=== PATIENT | male | born 1960 | race Hispanic/Latino ===

== ENCOUNTER 2018-02-04 06:58 | Day surgery (SDC) | payer BC ==
[~2018-02-04 06:58] MED LIST: LACTATED RINGERS 1,000 ML IV SCH
--- NOTE | 2018-02-04 07:35 | Anesthesia Consultation ---
Anesthesia Consult and Med Hx Date of service: 02/04/18 - Airway Anesthetic Teeth Evaluation: Poor ROM Head & Neck: Adequate Mental/Hyoid Distance: Inadequate Mallampati Class: Class III Intubation Access Assessment: Possibly Difficult - Pulmonary Exam CTA: Yes - Cardiac Exam Cardiac Exam: RRR - Pre-Operative Health Status ASA Pre-Surgery Classification: ASA3 Proposed Anesthetic Plan: General - Pulmonary Hx Smoking: Yes (1 PPD FOR 25 YEARS) Hx Sleep Apnea: Yes - Cardiovascular System Hx Hypertension: Yes (3 YEARS) - Central Nervous System Hx Neuromuscular Disorder: Yes (diabetic neuropathy) Hx Psychiatric Problems: No - Gastrointestinal Hx Gastroesophageal Reflux Disease: Yes - Endocrine Hx Non-Insulin Dependent Diabetes: Yes - Other Systems Hx Alcohol Use: No Hx Substance Use: No Hx Cancer: No Hx Obesity: Yes
--- NOTE | 2018-02-04 07:35 | Anesthesia Day of Surgery ---
Anesthesia Day of Surgery - Day of Surgery Patient Examined: Yes Patient H&P Reviewed: Yes Patient is NPO: Yes
[2018-02-04] MEDS ORDERED: DILAUDID IV PRN (07:36)
[2018-02-04] MEDS ORDERED: PROVENTIL IH NR (07:45)
[2018-02-04] MEDS ORDERED: ANCEF/STERILE WATER 2 GM/20 ML IV NR (08:00)
[2018-02-04] MEDS ORDERED: PEPCID IV NR (08:00)
[2018-02-04 08:12] LABS: Hematocrit 39.8 % (35.5-45.6); Hemoglobin 13.5 gm/dl (11.8-15.2)
[2018-02-04] MEDS: VERSED IV NR ×2 (08:29→08:46)
[2018-02-04] MEDS ORDERED: ADRENALINE P/F SUB-Q ONE (08:48)
[2018-02-04] MEDS ORDERED: XYLOCAINE 1% 20 mL INFILTRATI ONE (08:48)
[2018-02-04] MEDS ORDERED: MARCAINE 0.5% INFILTRATI ONE (08:48)
[2018-02-04] MEDS ORDERED: NACL 0.9% IR ONE (08:48)
[2018-02-04] MEDS ORDERED: ADRENALIN ONE (09:22)
[2018-02-04] MEDS ORDERED: BSS ONE (09:29)
[2018-02-04] MEDS ORDERED: DIPRIVAN 10 MG/ML IV ONE (11:09)
[2018-02-04] MEDS ORDERED: BREVIBLOC IV ONE (11:12)
[2018-02-04] MEDS ORDERED: SUBLIMAZE ONE (11:26)
[2018-02-04] MEDS ORDERED: ePHEDrine SULFATE ONE (11:28)
[2018-02-04] MEDS ORDERED: ZOFRAN ONE (12:01)
[2018-02-04] MEDS ORDERED: ROBINUL ONE (12:01)
[2018-02-04] MEDS ORDERED: QUELICIN ONE (12:01)
[2018-02-04] MEDS ORDERED: ARTIFICIAL TEARS OPHTH OINT ONE (12:01)
[2018-02-04] MEDS ORDERED: LACTATED RINGERS 1,000 ML ONE (12:02)
[2018-02-04] MEDS ORDERED: NEO SYNEPHRINE/NS Syringe(OR USE) IV ONE ×2 (12:02)
[2018-02-04] MEDS ORDERED: XYLOCAINE MPF 2% ONE (12:02)
[2018-02-04] MEDS ORDERED: PERCOCET 5/325 PO PRN (12:05)
[2018-02-04 12:36] VITALS: BP 121/69
--- NOTE | 2018-02-04 17:01 | Operative Report ---
PREOPERATIVE DIAGNOSES: 1. Open wound of left upper eyelid. 2. Open wound of left lower eyelid. 3. Cicatrix. 4. 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 PROCEDURE: 1. Complex repair of left upper eyelid, 3 cm. 2. Complex repair of left lower eyelid 3 cm. 3. Complex scar revision of left cheek 5 cm. 4. Complex repair of left lip with excision of approximately 1/8th to 1/4th of the lip. SURGEON: Star Montanez MD [employer]ATIONAL [employer] MANAGER: Galo Lino CSA. DESCRIPTION OF PROCEDURE: The patient was brought to the operating room and placed on the table in supine position. Following administration of general anesthesia, the patient was prepped with Betadine solution, draped in usual sterile manner. A #15 blade scalpel was used to recreate the traumatic defect followed by undermining of soft tissue and exposure of the tarsal plate which was transected necessitating reapproximation repair using a 5-0 PDS suture. Soft tissue also reapproximated using several interrupted 5-0 PDS sutures followed by interrupted 6-0 nylon and 5-0 plain gut sutures. Attention was then directed to the left lower eyelid where once again, the wound was reopened, scar excised, soft tissue mobilized. The ciliary border was realigned with interrupted 6-0 nylon suture, followed by trimming of redundant skin, which was then advanced and rotated across the defect for closure in layers using interrupted 5-0 PDS sutures and running and interrupted 5-0 plain gut sutures. Attention was then directed to the left upper lip where surgical correction of the scar was excised along with approximately 1/8th width of the lip followed by repair of orbicularis krzysztof muscle using interrupted 3-0 Monocryl sutures. Remaining soft tissue approximated using interrupted 5-0 PDS sutures followed by a single 6-0 nylon suture across vermilion border, an interrupted 3-0 chromic across the ____ line and a running 4-0 chromic suture for closure of the mucosa. Then attention was directed to the left upper and lower eyelids, which were joined with 6-0 silk sutures covered by an eye pad to achieve a tarsorrhaphy for the next 2 weeks. JOB# [id number] FTW/NTS
== END 2018-02-04 13:00 | disposition home or self-care (01) ==
LOC: OR 06:58
PROVIDERS: ATTEND Plastic Surgery
DX: S01.112A Laceration without foreign body of left eyelid and periocular area, initial encounter (principal); S01.412A Laceration without foreign body of left cheek and temporomandibular area, initial encounter; S01.511A Laceration without foreign body of lip, initial encounter; I10 Essential (primary) hypertension; G47.30 Sleep apnea, unspecified; K21.9 Gastro-esophageal reflux disease without esophagitis; E78.00 Pure hypercholesterolemia, unspecified; E11.42 Type 2 diabetes mellitus with diabetic polyneuropathy; E66.9 Obesity, unspecified; F17.210 Nicotine dependence, cigarettes, uncomplicated; Z68.41 Body mass index [BMI] 40.0-44.9, adult; Z79.899 Other long term (current) drug therapy; Z79.84 Long term (current) use of oral hypoglycemic drugs; Z86.73 Personal history of transient ischemic attack (TIA), and cerebral infarction without residual deficits; W26.8XXA Contact with other sharp object(s), not elsewhere classified, initial encounter; Y93.89 Activity, other specified; Y92.89 Other specified places as the place of occurrence of the external cause; Y99.8 Other external cause status
CPT/HCPCS: 13132; 13152; 36415; 40530; 82962; 84132; 85014; 85018; 93005; 93010; J0171; J0330; J0690; J2250; J2370; J2405; J2704; J3010; J7120